=== PATIENT | female | born 1960 | race Caucasian/White ===

== ENCOUNTER 2019-05-27 11:00 | Inpatient (IN) | payer MEDICAID ==
[~2019-05-27] VITALS: Ht 149.9 cm; Wt 61.2 kg
[~2019-05-27 11:00] MED LIST: LOSA25TA26 PO; METF-414 PO
[2019-05-27] MEDS ORDERED: SODIUM CHLORIDE 0.9% 1,000 ML IV ONE (11:39)
[2019-05-27] MEDS ORDERED: IPRATROPIUM BROMIDE (0.02%) 0.5MG/2.5ML NEB HHN STA (11:48)
[2019-05-27] MEDS ORDERED: ALBUTEROL (0.083%) 2.5MG/3ML NEB HHN STA (11:48)
[2019-05-27 12:29] LABS: BASOPHILS % 0.6 % (0.0-2.0); EOSINOPHILS % 1.6 % (0.0-5.0); HEMOGLOBIN. 14.4 g/dL (12.0-16.0); MEAN CORPUSCULAR HEMOGLOBIN 30.4 pg (28.0-32.0); MEAN CORPUSCULAR VOLUME 88.5 fL (81.0-99.0); MEAN PLATELET VOLUME 9.2 fl (7.4-10.4); MONOCYTES % 7.9 % (2.0-8.0); NEUTROPHILS % 78.9 % (40.0-76.0); PLATELET 206 x1000/uL (130-400); RED BLOOD CELL COUNT 4.74 mill/uL (4.2-5.4); RED CELL DISTRIBUTION WIDTH 13.1 % (11.6-14.6)
[2019-05-27 12:37] LABS: CHLORIDE 104 mEq/L (98-107)
[2019-05-27 12:39] LABS: CLARITY URINE CLEAR (CLEAR); COLOR URINE YELLOW (YELLOW); KETONES URINE NEGATIVE (NEGATIVE); LEUKOCYTE ESTERASE URINE NEGATIVE (NEGATIVE); NITRITE URINE NEGATIVE (NEGATIVE); OCCULT BLOOD URINE TRACE (NEGATIVE); PH URINE 7.5 (4.5-8.0); PROTEIN URINE NEGATIVE (NEGATIVE); SPECIFIC GRAVITY URINE 1.024 (1.005-1.030)
[2019-05-27 12:40] LABS: D-DIMER 0.34 mg/L FEU (<0.50); PROTHROMBIN TIME 10.5 sec (9.6-11.0)
[2019-05-27] MEDS ORDERED: AZITHROMYCIN 500 MG in DEXT 5% WATER 250 ML IV ONE (13:15)
[2019-05-27] MEDS ORDERED: CEFTRIAXONE 1 G PREMIX 50 ML IV ONE (13:15)
[2019-05-27] MEDS ORDERED: SODIUM CHLORIDE 0.9% 1000ML BAG (SEPSIS BOLUS) IV ONE (14:15)
[2019-05-27] MEDS ORDERED: ACETAMINOPHEN 325MG TABLET PO PRN (15:00)
[2019-05-27] MEDS ORDERED: CLONIDINE 0.1MG TABLET PO PRN (15:00)
[2019-05-27] MEDS ORDERED: KETOROLAC 15MG/ML VIAL IV PRN (15:00)
[2019-05-27] MEDS ORDERED: ENOXAPARIN 40MG/0.4ML SYR SUBCUT SCH (15:00)
[2019-05-27] MEDS ORDERED: MAGNESIUM/ALUMINUM HYDROXIDE/SIMETHICONE 30ML UDC PO PRN (15:00)
[2019-05-27] MEDS ORDERED: DOCUSATE SODIUM 100MG CAPSULE PO PRN (15:00)
[2019-05-27] MEDS ORDERED: DEXTROSE 50% WATER 50ML SYRINGE IV PRN (15:00)
[2019-05-27] MEDS ORDERED: AZITHROMYCIN 500 MG in DEXT 5% WATER 250 ML IV SCH (15:00)
[2019-05-27] MEDS ORDERED: NITROGLYCERIN 0.4MG TABLET SL SL PRN (15:00)
[2019-05-27] MEDS ORDERED: ONDANSETRON HCL 4MG/2ML INJ IV PRN (15:00)
[2019-05-27] MEDS ORDERED: LORAZEPAM 0.5MG TABLET PO PRN (15:00)
[2019-05-27] MEDS ORDERED: GUAIFENESIN 200MG/10ML SUGAR FREE UDC PO PRN (15:00)
[2019-05-27] MEDS: GUAIFENESIN/DM 600MG/30MG ER TAB 12HR PO SCH (15:00)
[2019-05-27] MEDS ORDERED: IPRATROPIUM/ALBUTEROL 0.5-3(2.5)MG/3ML NEB NEB PRN (15:00)
[2019-05-27] MEDS ORDERED: IOHEXOL-350 100 ML BOTTLE ONE (16:17)
[2019-05-27] MEDS: BLOOD SUGAR DIAGNOSTIC STRIP TEST SCH ×2 (17:27→21:00)
[2019-05-27] MEDS: INSULIN LISPRO 100 UNITS/ML SUBCUT SCH (18:34)
[2019-05-27 20:49] LABS: *AMPHETAMINES SCREEN URINE NEGATIVE (NEGATIVE); *BARBITURATES SCREEN URINE NEGATIVE (NEGATIVE); *BENZODIAZEPINES SCREEN URINE NEGATIVE (NEGATIVE); *COCAINE SCREEN URINE NEGATIVE (NEGATIVE); CANNABINOID URINE SCREEN NEGATIVE (NEGATIVE); METHADONE URINE SCREEN NEGATIVE (NEGATIVE); OPIATES URINE SCREEN NEGATIVE (NEGATIVE)
[2019-05-27 20:53] LABS: PHENCYCLIDINE URINE SCREEN NEGATIVE (NEGATIVE)
[2019-05-27] MEDS ORDERED: ZOLPIDEM TARTRATE 5MG TABLET PO PRN (21:00)
[2019-05-27] MEDS: METOPROLOL TARTRATE 25MG TABLET PO SCH (21:00)
[2019-05-27 23:08] LABS: CREATINE KINASE 67 IU/L (26-192)
[2019-05-27 23:09] LABS: CREATINE KINASE MB FRACTION < 1.0 ng/mL (0.5-3.6)
[2019-05-28] MEDS: INSULIN LISPRO 100 UNITS/ML SUBCUT SCH ×5 (02:37→20:44)
[2019-05-28] MEDS: GUAIFENESIN/DM 600MG/30MG ER TAB 12HR PO SCH ×3 (07:24→20:39)
[2019-05-28 08:10] LABS: CREATINE KINASE 62 IU/L (26-192)
[2019-05-28 08:11] LABS: CREATINE KINASE MB FRACTION < 1.0 ng/mL (0.5-3.6)
[2019-05-28 09:00] VITALS: BP 121/59
[2019-05-28] MEDS ORDERED: CEFTRIAXONE 1 G PREMIX 50 ML IV SCH ×2 (09:00→13:00)
[2019-05-28] MEDS: ASPIRIN 325MG EC TABLET PO SCH (09:32)
[2019-05-28] MEDS: METOPROLOL TARTRATE 25MG TABLET PO SCH ×2 (09:32→20:39)
[2019-05-28] MEDS: FAMOTIDINE 20MG TABLET PO SCH ×2 (09:32→20:39)
[2019-05-28] MEDS: ENOXAPARIN 40MG/0.4ML SYR SUBCUT SCH (09:33)
[2019-05-28] MEDS ORDERED: GLIP5TAB12 MT (11:47)
[2019-05-28] MEDS ORDERED: OMEP20CA14 PO (11:47)
[2019-05-28 12:00] VITALS: BP 103/61
[2019-05-28] MEDS: BLOOD SUGAR DIAGNOSTIC STRIP TEST SCH ×3 (13:16→20:44)
[2019-05-28 16:00] VITALS: BP 105/59
[2019-05-28] MEDS ORDERED: AZITHROMYCIN 500 MG in DEXT 5% WATER 250 ML IV SCH (16:00)
[2019-05-28 20:00] VITALS: BP 123/67
[2019-05-29 00:26] VITALS: BP 103/65
[2019-05-29 04:00] VITALS: BP 125/68
[2019-05-29] MEDS: BLOOD SUGAR DIAGNOSTIC STRIP TEST SCH (06:16)
[2019-05-29 08:00] VITALS: BP 106/68
[2019-05-29] MEDS: ASPIRIN 325MG EC TABLET PO SCH (08:32)
[2019-05-29] MEDS: FAMOTIDINE 20MG TABLET PO SCH (08:32)
[2019-05-29] MEDS: METOPROLOL TARTRATE 25MG TABLET PO SCH (08:32)
[2019-05-29] MEDS: ENOXAPARIN 40MG/0.4ML SYR SUBCUT SCH (08:32)
[2019-05-29] MEDS: GUAIFENESIN/DM 600MG/30MG ER TAB 12HR PO SCH (08:32)
[2019-05-29] MEDS: INSULIN LISPRO 100 UNITS/ML SUBCUT SCH (09:51)
[2019-05-29 12:00] VITALS: BP 110/67
== END 2019-05-29 12:05 | disposition home or self-care (01) | DRG 720 ==
LOC: ER 11:00 → 6WST 14:10 → EDBEDREQ 19:31 → ENRESERV 05-28 07:57
PROVIDERS: ADMIT Internal Medicine; ATTEND Internal Medicine
DX: A41.9 Sepsis, unspecified organism (principal); J96.00 Acute respiratory failure, unspecified whether with hypoxia or hypercapnia; I10 Essential (primary) hypertension; E11.9 Type 2 diabetes mellitus without complications; J18.9 Pneumonia, unspecified organism; K76.0 Fatty (change of) liver, not elsewhere classified; I47.1 Supraventricular tachycardia; Z79.899 Other long term (current) drug therapy; Z87.442 Personal history of urinary calculi; Z79.4 Long term (current) use of insulin; Z79.84 Long term (current) use of oral hypoglycemic drugs; Z90.49 Acquired absence of other specified parts of digestive tract; Z98.891 History of uterine scar from previous surgery
CPT/HCPCS: 36415; 71045; 71275; 80053; 80061; 80305; 81003; 82550; 82553; 82962; 83036; 83605; 83880; 84145; 84484; 85025; 85379; 87804; 93005; 93970; 94640; 99291; J0456; J0696; J1650; J1815; J7030; J7060; Q9967

== ENCOUNTER 2023-07-01 18:19 | Emergency (ER) | payer MEDICAID ==
[~2023-07-01] VITALS: Ht 152.4 cm; Wt 84.0 kg
[~2023-07-01 18:19] MED LIST changes: +GLIP5TAB22 MT; +OMEP20CA14 PO
[2023-07-01 18:23] VITALS: O2SAT 98
[2023-07-01] MEDS ORDERED: ATENOLOL (18:23)
[2023-07-01 20:13] LABS: BASOPHILS % 0.9 % (0.0-2.0); EOSINOPHILS % 2.5 % (0.0-5.0); HEMATOCRIT. 40.9 % (36.0-48.0); HEMOGLOBIN. 13.9 g/dL (12.0-16.0); LYMPHOCYTES % 28.8 % (20.0-50.0); MEAN CORPUSCULAR HEMOGLOBIN 31.4 pg (28.0-32.0); MEAN CORPUSCULAR VOLUME 92.4 fL (81.0-99.0); MONOCYTES % 7.2 % (2.0-8.0); NEUTROPHILS % 60.6 % (40.0-76.0); PLATELET 264 x1000/uL (130-400); RED BLOOD CELL COUNT 4.43 mill/uL (4.2-5.4); RED CELL DISTRIBUTION WIDTH 13.7 % (11.6-14.6)
[2023-07-01 20:27] LABS: ALANINE AMINOTRANSFERASE 73 IU/L (10-49); ALBUMIN 4.3 g/dL (3.2-4.8); ASPARTATE AMINOTRANSFERASE 63 IU/L (<34); BILIRUBIN TOTAL 0.6 mg/dL (0.1-1.0); CALCIUM 9.5 mg/dL (8.7-10.4); CARBON DIOXIDE 25 mEq/L (21-32); CHLORIDE 105 mEq/L (98-107); CREATININE 0.7 mg/dL (0.6-1.0); GLUCOSE 113 mg/dL (70-105); POTASSIUM 4.3 mEq/L (3.5-5.1); PROTEIN TOTAL 7.6 g/dL (6.0-8.3); SODIUM 137 mEq/L (136-145); UREA NITROGEN BLOOD 12 mg/dL (9-23)
[2023-07-01 20:28] LABS: TROPONIN I HIGH SENSITIVITY < 4 ng/L (3.0-34)
[2023-07-01] MEDS: KETOROLAC 15MG/ML VIAL IV ONE (21:41)
[2023-07-01 21:43] LABS: CLARITY URINE CLEAR (CLEAR); COLOR URINE YELLOW (YELLOW); GLUCOSE URINE NEGATIVE (NEGATIVE); KETONES URINE NEGATIVE (NEGATIVE); LEUKOCYTE ESTERASE URINE NEGATIVE (NEGATIVE); NITRITE URINE NEGATIVE (NEGATIVE); OCCULT BLOOD URINE 1+ (NEGATIVE); PH URINE 6.5 (4.5-8.0); PROTEIN URINE NEGATIVE (NEGATIVE); UROBILINOGEN URINE 0.2 E.U./dL (0.2-1.0)
[2023-07-01 22:05] LABS: BACTERIA URINE TRACE; SQUAMOUS EPITHELIAL CELL URINE FEW /lpf (RARE/1+); WBC URINE 0-2 /hpf (0-2)
[2023-07-01] MEDS ORDERED: TAMS-11 MT (22:48)
[2023-07-01 22:50] VITALS: BP 148/60; PULSE 76; RESP 16; TEMP 98.6
== END 2023-07-01 23:00 | disposition home or self-care (01) ==
LOC: ER 18:19
DX: N20.0 Calculus of kidney (principal); E11.9 Type 2 diabetes mellitus without complications; K21.9 Gastro-esophageal reflux disease without esophagitis; I10 Essential (primary) hypertension; Z98.890 Other specified postprocedural states; Z90.49 Acquired absence of other specified parts of digestive tract; Z79.899 Other long term (current) drug therapy
CPT/HCPCS: 99285; 74176; 96374; 71045; 80053; 81003; 85025; 84484; 36415; 93005; J1885